=== PATIENT | male | born 1965 | race Two or more races ===

== ENCOUNTER 2024-07-25 12:40 | Emergency (ER) | payer OTHER ==
[~2024-07-25] VITALS: Ht 175.3 cm; Wt 77.1 kg
[2024-07-25 13:11] VITALS: BP 126/64; O2SAT 97
[2024-07-25] MEDS ORDERED: MAXITROL EYE DRO5 ML OP (14:08)
[2024-07-25] MEDS ORDERED: TETRACAINE HCL 20 DR/ML DROPS OP ONE (14:15)
== END 2024-07-25 14:26 | disposition home or self-care (01) ==
LOC: ER 12:42
DX: S05.90XA Unspecified injury of unspecified eye and orbit, initial encounter (principal); W18.39XA Other fall on same level, initial encounter; Y93.89 Activity, other specified; Y92.018 Other place in single-family (private) house as the place of occurrence of the external cause